=== PATIENT | male | born 1985 ===

== ENCOUNTER 2018-01-08 10:22 | Emergency (ER) | payer OTHER ==
[2018-01-08 10:33] VITALS: PULSE 78; RESP 18; TEMP 98; O2SAT 98
--- NOTE | 2018-01-08 11:24 | C.PDOC ---
History Of Present Illness 32 year old male with no past medical history presents to the emergency department with complaints of palpitations that began two hours ago. Patient reports he uses cocaine on the weekends, and used "$100 worth" of cocaine last night. Patient denies chest pain or shortness of breath, but states that he felt like he was 'losing his vision' in both eyes about 2 hrs ago. Patient reports the sensation has since resolved, and he denies any visual difficulties or palpitations at this time. Time Seen by Provider: 01/08/18 10:35 Chief Complaint (Nursing): Palpitations History Per: Patient History/Exam Limitations: no limitations Onset/Duration Of Symptoms: Hrs (2) Current Symptoms Are (Timing): Gone Past Medical History Reviewed: Historical Data, Nursing Documentation, Vital Signs Vital Signs: Last Vital Signs Temp 98 F 01/08/18 10:31 Pulse 78 01/08/18 10:31 Resp 18 01/08/18 10:31 BP 153/74 H 01/08/18 10:31 Pulse Ox 98 01/08/18 11:53 - Medical History PMH: No Chronic Diseases Surgical History: No Surg Hx Family History: States: No Known Family Hx - Social History Hx Alcohol Use: Yes Hx Substance Use: Yes (2 x wk) - Immunization History Hx Tetanus Toxoid Vaccination: No Hx Influenza Vaccination: No Hx Pneumococcal Vaccination: No Review Of Systems Eyes: Positive for: Vision Change (now resolved) Cardiovascular: Positive for: Palpitations (now resolved). Negative for: Chest Pain Respiratory: Negative for: Shortness of Breath Physical Exam - Physical Exam Appears: Non-toxic, No Acute Distress Skin: No Rash Head: Atraumatic, Normacephalic Eye(s): bilateral: Other (dilated, reactive pupils) Oral Mucosa: Moist Neck: Supple Chest: No Tenderness Cardiovascular: Rhythm Regular, No Murmur Respiratory: Normal Breath Sounds (clear to auscultation bilaterally), No Rales , No Rhonchi, No Wheezing Gastrointestinal/Abdominal: Normal Exam, Bowel Sounds (active), Soft, No Tenderness, No Distention Back: No CVA Tenderness Neurological/Psych: Oriented x3, Normal Speech, Normal Cognition ED Course And Treatment ECG: Interpreted By Me, Viewed By Me ECG Rhythm: Sinus Rhythm (84bpm) ECG Interpretation: Normal O2 Sat by Pulse Oximetry: 98 (RA) Pulse Ox Interpretation: Normal Medical Decision Making Medical Decision Making: pt with resolved palpitations, ekg with nsr, no visual disturbances at this time with visual acuity 20/20. pt given list of detox resouces and advised against cocaine and other drug use. Disposition Counseled Patient/Family Regarding: Studies Performed, Diagnosis, Need For Followup - Disposition Referrals: [facility] at [facility] [Outside] Lokesh Mccoy MD [Staff Provider] - Disposition: HOME/ ROUTINE Disposition Time: 11:46 Condition: IMPROVED Additional Instructions: Please stop using cocaine. Call detox programs for assistance. Please follow up in medical clinic and with eye doctor. Return to ER for any worse symtpoms. chest pain. shortness of breathing, visual difficulties ot any other concerns. Instructions: Cocaine Use Disorder, Palpitations (DC) Forms: [facility] ([place]), General Discharge Instructions - Clinical Impression Clinical Impression: Palpitations, Cocaine abuse - PA / DAY CARE DIRECTOR / Resident Statement MD/DO has reviewed & agrees with the documentation as recorded. - Scribe Statement The provider has reviewed the documentation as recorded by the Scribe (Yimi Bourgeois) All medical record entries made by the Scribe were at my direction and personally dictated by me. I have reviewed the chart and agree that the record accurately reflects my personal performance of the history, physical exam, medical decision making, and the department course for this patient. I have also personally directed, reviewed, and agree with the discharge instructions and disposition.
[2018-01-08 11:54] VITALS: BP 126/74
== END 2018-01-08 11:54 | disposition home or self-care (01) ==
LOC: C.ER 10:22
DX: R00.2 Palpitations (principal); F14.10 Cocaine abuse, uncomplicated